=== PATIENT | female | born 1960 | race Caucasian/White ===

== ENCOUNTER → 2020-06-05 | Outpatient (CLI) | payer OTHER ==
[~2020-06-05] MED LIST: OMNIPAQUE 350 MG/ML, 50 ML BOTTLE ONE; [UNRECOGNIZED DRUG - OTHER] ONE
== END | disposition home or self-care (01) ==
LOC: RAD 13:21
PROVIDERS: ATTEND Orthopaedic Surgery Adult Reconstructive Orthopaedic Surgery
DX: M16.11 Unilateral primary osteoarthritis, right hip (principal)
CPT/HCPCS: 27093; 73525; 73722; A9579; Q9967